=== PATIENT | male | born 1990 | race Hispanic/Latino ===

== ENCOUNTER 2019-02-21 19:36 | Emergency (ER) | payer OTHER ==
[2019-02-21] MEDS ORDERED: KETOROLAC TROMETHAMINE INJ 30 MG/ML VIAL IM ONE (19:47)
[2019-02-21] MEDS ORDERED: HYDROcodone 7.5MG/APAP 325MG 1 EA TAB PO ONE (19:47)
[2019-02-21] MEDS ORDERED: ONDANSETRON ODT 8 MG TAB SL ONE (19:47)
[2019-02-21] MEDS ORDERED: SODIUM CHLORIDE 0.9% 1000ML 1,000 ML IVS ONE (19:48)
[2019-02-21] MEDS ORDERED: diazePAM INJ 10 MG/2 ML SYG IV ONE (21:23)
[2019-02-21 23:05] VITALS: O2SAT 98
--- NOTE | 2019-02-21 23:27 | ED.PDOC ---
History of Present Illness - General Chief Complaint: Headache Stated Complaint: migraine headache Time Seen by Provider: 02/21/19 19:37 Source: patient Exam Limitations: no limitations - History of Present Illness Initial Comments: the patient is a 28-year-old male presenting to the emergency room secondary primarily due to headache. The patient also appears to have a low-grade fever. Headache is worse in the frontal area. No altered mental status. He has had some nausea. No nuchal rigidity or meningeal signs. Mild photophobia. No trauma. no sore throat. The patient apparently had what sounds like a viral syndrome for the last 4 or 5 days. He did have some stomach upset as well as some cough and some runny nose during that time but had been getting better unti l the headache that started around 3 PM today. His liquid intake has been down over the past few days. Timing/Duration: 4-6 hours Severity: severe Improving Factors: nothing Worsening Factors: nothing Associated Symptoms: headaches, loss of appetite, malaise Allergies/Adverse Reactions: Allergies NO KNOWN ALLERGY Allergy (Unverified 09/12/12 10:36) Home Medications: Ambulatory Orders Acetaminophen W/ Codeine [Tylenol w/Codeine 300-30 mg] 1 tab PO Q4HR PRN #30 tab 12/03/15 Review of Systems - Review of Systems Constitutional: States: malaise EENTM: States: nose congestion Respiratory: States: no symptoms reported Cardiology: States: no symptoms reported Gastrointestinal/Abdominal: States: nausea Genitourinary: States: no symptoms reported Musculoskeletal: States: no symptoms reported Skin: States: no symptoms reported Neurological: States: headache Endocrine: States: no symptoms reported Hematologic/Lymphatic: States: no symptoms reported All other Systems: No Change from Baseline Past Medical History (General) - Patient Medical History Hx Seizures: No Hx Stroke: No Hx Dementia: No Hx Asthma: No Hx of COPD: No Hx Cardiac Disorders: No Hx Congestive Heart Failure: No Hx Pacemaker: No Hx Hypertension: No Hx Thyroid Disease: No Hx Diabetes: No Hx Gastroesophageal Reflux: No Hx Renal Disease: No Hx Cancer: No Hx of HIV: No Hx Hepatitis C: No Hx MRSA: No Surgical History: no surgical history - Vaccination History Hx Tetanus, Diphtheria Vaccination: No Hx Influenza Vaccination: No Hx Pneumococcal Vaccination: No Immunizations Up to Date: No - Social History Hx Tobacco Use: Yes Hx Alcohol Use: Yes Hx Substance Use: No Hx Substance Use Treatment: No Hx Depression: No Hx Physical Abuse: No Hx Emotional Abuse: No Hx Suspected Abuse: No Family Medical History - Family History Mother Family History: Unknown Living Status: Unknown Physical Exam - Physical Exam General Appearance: Alert, Obvious distress Eye Exam: bilateral normal Ears, Nose, Throat: hearing grossly normal, normal pharynx, nasal congestion Neck: non-tender, full range of motion, supple Respiratory: lungs clear, normal breath sounds, no respiratory distress, no accessory muscle use Cardiovascular/Chest: normal peripheral pulses, regular rate, rhythm, no edema Peripheral Pulses: radial,right: 2+, radial,left: 2+, dorsalis pedis,right: 2+, dorsalis pedis,left: 2+ Gastrointestinal/Abdominal: non tender, soft Rectal Exam: deferred Back Exam: no CVA tenderness, no vertebral tenderness Extremity: normal range of motion, non-tender, normal inspection, no pedal edema, normal capillary refill 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, no motor/sensory deficits, alert, normal mood/affect, oriented x 3 Skin Exam: normal color Comments: Vital Signs - 24 hr 02/21/19 02/21/19 02/21/19 20:00 21:00 21:44 Temperature 100.1 F H 99.2 F Pulse Rate [ 68 67 66 left] Respiratory 20 14 14 Rate Blood Pressure 140/81 105/56 96/42 [Left Arm] O2 Sat by Pulse 100 99 99 Oximetry 02/21/19 02/21/19 22:00 23:00 Temperature Pulse Rate [ 66 63 left] Respiratory 12 12 Rate Blood Pressure 110/56 108/54 [Left Arm] O2 Sat by Pulse 99 98 Oximetry Progress - Progress Progress: 02/21/19 23:29 the patient is a 28-year-old male presenting to the emergency room secondary to a headache that started earlier in the afternoon and has progressively gotten worse. This likely started as a mild tension or dehydration headache related to his recent viral syndrome. Based on his symptoms here this evening, this seems more like it has turned into a migraine headache at this point. No altered mental status and no nuchal rigidity or meningeal signs to really point to an encephalitis or meningitis at this time. no focal neurological changes and no vital sign instability. The patient is doing significantly better symptomatically. He has received a liter of IV fluids. He will be allowed to go home. However if the patient worsens significantly in any way then he is to return here for additional workup including additional imaging, blood work and possibly a lumbar puncture could be done if indicated at the time. He does still appear to be suffering mildly from his viral syndrome that he acquired earlier in the week. He needs to keep himself well-hydrated. Follow-up with primary care doctor next week. [facility] [id number] - Results/Orders Results/Orders: Laboratory Results - last 24 hr 02/21/19 21:35 POC Glucose 135 H Departure - Departure Clinical Impression: Viral syndrome Migraine Qualifiers: Migraine type: without aura Status migrainosus presence: without status migrainosus Intractability: not intractable Qualified Code(s): G43.009 - Migraine without aura, not intractable, without status migrainosus Disposition: Discharge to Home or Self Care Condition: Fair Departure Forms: ED Discharge - Pt. Copy, Patient Portal Self Enrollment Diet: regular diet Activity: increase activity as tolerated Home Medications: Ambulatory Orders Acetaminophen W/ Codeine [Tylenol w/Codeine 300-30 mg] 1 tab PO Q4HR PRN #30 tab 12/03/15 Additional Instructions: the patient is a 28-year-old male presenting to the emergency room secondary to a headache that started earlier in the afternoon and has progressively gotten worse. This likely started as a mild tension or dehydration headache related to his recent viral syndrome. Based on his symptoms here this evening, this seems more like it has turned into a migraine headache at this point. No altered mental status and no nuchal rigidity or meningeal signs to really point to an encephalitis or meningitis at this time. no focal neurological changes and no vital sign instability. The patient is doing significantly better symptomatically. He has received a liter of IV fluids. He will be allowed to go home. However if the patient worsens significantly in any way then he is to return here for additional workup including additional imaging, blood work and possibly a lumbar puncture could be done if indicated at the time. He does still appear to be suffering mildly from his viral syndrome that he acquired earlier in the week. He needs to keep himself well-hydrated. Follow-up with primary care doctor next week.
[2019-02-21] MEDS ORDERED: predniSONE 20 MG TAB PO ONE (23:34)
[2019-02-21 23:44] VITALS: BP 107/51; TEMP 97.4
== END 2019-02-21 23:42 | disposition home or self-care (01) ==
LOC: ER 19:36
DX: G43.009 Migraine without aura, not intractable, without status migrainosus (principal); B34.9 Viral infection, unspecified; Z87.891 Personal history of nicotine dependence
CPT/HCPCS: 36415; 82948; 87804; J1885; J3360; J7030; J7512

== ENCOUNTER 2019-02-22 16:38 | Emergency (ER) | payer SELFPAY ==
[2019-02-22] MEDS ORDERED: SODIUM CHLORIDE 0.9% 1000ML 1,000 ML IVS ONE (17:12)
[2019-02-22] MEDS ORDERED: ACETAMINOPHEN 325 MG TAB PO ONE (17:12)
[2019-02-22] MEDS ORDERED: METOCLOPRAMIDE HCL INJ 10 MG/2 ML VIAL IV ONE (17:13)
[2019-02-22] MEDS ORDERED: diphenhydrAMINE HCL 50 MG/ML VIAL IV STA (17:13)
--- NOTE | 2019-02-22 17:16 | ED.PDOC ---
History of Present Illness - General Chief Complaint: Headache Stated Complaint: headache Time Seen by Provider: 02/22/19 16:42 - History of Present Illness Initial Comments: Patient presents to the ED complaining of headache. States that he had a viral syndrome four days ago which was significant for fever, body aches and chills. Two days later he developed headache that gradually worsened. He has noted low- grade fevers at home but not checked with a thermometer. He was seen in the ED yesterday for same complaint, advised to return if symptoms did not improve. He complains of bitemporal and frontal headache that is worse when bending forward and looking around. He has mild photophobia, no phonophobia. He denies neck pain and stiffness. He denies recent travel and known sick contacts. He has been fully immunized. He drinks occasional caffeine. No drugs. No other complaints at this time. Allergies/Adverse Reactions: Allergies NO KNOWN ALLERGY Allergy (Unverified 09/12/12 10:36) Home Medications: Ambulatory Orders Acetaminophen W/ Codeine [Tylenol w/Codeine 300-30 mg] 1 tab PO Q4HR PRN #30 tab 12/03/15 Review of Systems - Review of Systems Constitutional: States: chills, fever, malaise EENTM: States: eye pain. Denies: blurred vision, throat pain, throat swelling Respiratory: Denies: cough, short of breath Cardiology: Denies: chest pain, palpitations Gastrointestinal/Abdominal: Denies: abdominal pain Genitourinary: States: no symptoms reported Musculoskeletal: States: muscle pain, muscle stiffness. Denies: neck pain Skin: Denies: lesions, rash Neurological: States: headache. Denies: numbness, paresthesia Endocrine: States: no symptoms reported Hematologic/Lymphatic: States: no symptoms reported All other Systems: Reviewed and Negative Past Medical History (General) - Patient Medical History Hx Seizures: No Hx Stroke: No Hx Dementia: No Hx Asthma: No Hx of COPD: No Hx Cardiac Disorders: No Hx Congestive Heart Failure: No Hx Pacemaker: No Hx Hypertension: No Hx Thyroid Disease: No Hx Diabetes: No Hx Gastroesophageal Reflux: No Hx Renal Disease: No Hx Cancer: No Hx of HIV: No Hx Hepatitis C: No Hx MRSA: No - Vaccination History Hx Tetanus, Diphtheria Vaccination: No Hx Influenza Vaccination: No Hx Pneumococcal Vaccination: No - Social History Hx Tobacco Use: Yes Hx Alcohol Use: Yes Hx Substance Use: No Hx Substance Use Treatment: No Hx Depression: No Hx Physical Abuse: No Hx Emotional Abuse: No Hx Suspected Abuse: No Family Medical History - Family History Mother Family History: Unknown Living Status: Unknown Physical Exam - Physical Exam General Appearance: Alert, Restless, Well Groomed Eyes, Ears, Nose, Throat Exam: PERRL/EOMI, normal ENT inspection, pharynx normal, other - no photophobia Neck: non-tender, full range of motion, other - no meningeal signs Cardiovascular/Chest: regular rate, rhythm Respiratory: no respiratory distress, no accessory muscle use Gastrointestinal/Abdominal: non tender, soft Extremity: normal range of motion 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 02/22/19 22:06 Patient reassessed, headache is well controlled and he wants to go home. CSF studies consistent with aseptic meningitis, no organisms on WBC. Neuro exam is normal. Will continue outpatient symptomatic management and he will follow up with his PCP. Home care instructions and return indications reviewed. MDM: Patient presents to the ED with headache, likely aseptic meningitis. He does not have focal neurologic deficits. He has only 10WBCs on his lumbar puncture with mostly lymphocytes. There is no leukocytosis and CSF protein/glucose are normal. His headache improved with ED management. Discussed and offered admission, however, the patient stated that he was comfortable continuing outpatient symptomatic management. Home care instructions and return indications reviewed. Bj Iqbal MD Emergency Medicine Physician Number [id number] - Results/Orders Results/Orders: 02/22/19 19:04 CSF CULTURE Stat Laboratory Results - last 24 hr 02/22/19 02/22/19 02/22/19 17:23 17:23 19:02 WBC 6.1 RBC 4.68 L Hgb 13.1 L Hct 39.1 L MCV 83.5 MCH 28.0 MCHC 33.5 RDW 14.1 Plt Count 173 MPV 8.5 Absolute Neuts (auto) 3.50 Absolute Lymphs (auto) 2.00 Absolute Monos (auto) 0.60 Absolute Eos (auto) 0.00 Absolute Basos (auto) 0.00 Neutrophils % 56.6 Lymphocytes % 32.4 Monocytes % 10.6 H Eosinophils % 0.1 L Basophils % 0.3 Sodium 137 Potassium 3.6 Chloride 99 L Carbon Dioxide 26 Anion Gap 15.6 BUN 15 Creatinine 1.03 BUN/Creatinine Ratio 14.6 Random Glucose 96 Serum Osmolality 274.5 L Calcium 8.7 C-Reactive Protein 0.9 CSF Appearance CSF Color CSF WBC CSF RBC CSF Neutrophils CSF Lymphocytes CSF Glucose 65 CSF Total Protein 36.9 02/22/19 19:08 WBC RBC Hgb Hct MCV MCH MCHC RDW Plt Count MPV Absolute Neuts (auto) Absolute Lymphs (auto) Absolute Monos (auto) Absolute Eos (auto) Absolute Basos (auto) Neutrophils % Lymphocytes % Monocytes % Eosinophils % Basophils % Sodium Potassium Chloride Carbon Dioxide Anion Gap BUN Creatinine BUN/Creatinine Ratio Random Glucose Serum Osmolality Calcium C-Reactive Protein CSF Appearance Clear CSF Color Colorless CSF WBC 10 H* CSF RBC 1 CSF Neutrophils 20.0 CSF Lymphocytes 80.0 CSF Glucose CSF Total Protein Departure - Departure Clinical Impression: Aseptic meningitis Time of Disposition: 22:08 Disposition: Discharge to Home or Self Care Condition: Fair Departure Forms: ED Discharge - Pt. Copy, Patient Portal Self Enrollment Instructions: DI for Headache, Aseptic Meningitis (DC) Diet: resume usual diet Activity: increase activity as tolerated Home Medications: Ambulatory Orders Acetaminophen W/ Codeine [Tylenol w/Codeine 300-30 mg] 1 tab PO Q4HR PRN #30 tab 12/03/15
[2019-02-22] MEDS ORDERED: SUMAtriptan SUCCINATE INJ 6 MG/0.5 ML VIAL SUBCU ONE (18:13)
[2019-02-22 22:06] VITALS: BP 107/52; O2SAT 98
[2019-02-22 22:12] VITALS: TEMP 98.9
== END 2019-02-22 22:13 | disposition home or self-care (01) ==
LOC: ER 16:38
DX: G03.0 Nonpyogenic meningitis (principal); Z87.891 Personal history of nicotine dependence
CPT/HCPCS: 36415; 80048; 82945; 84157; 85025; 86140; 87070; 87205; 87502; 89051; J1200; J2765; J3030; J7030

== ENCOUNTER 2019-10-01 19:51 | Emergency (ER) | payer SELFPAY ==
[2019-10-01] MEDS ORDERED: LIDOCAINE 1% 10 ML VIAL INJ ONE (19:59)
[2019-10-01] MEDS ORDERED: CHLORHEXIDINE GLUCONATE 4 % 15 ML UD TOP ONE (20:01)
[2019-10-01 20:09] VITALS: TEMP 97.5; O2SAT 100
[2019-10-01] MEDS ORDERED: TETANUS,DIPHTHERIA,PERTUSSIS 1 EA SYG IM ONE (20:20)
[2019-10-01] MEDS ORDERED: ACETAMINOPHEN W/COD #3 TAB 1 EA TAB PO ONE (20:21)
[2019-10-01] MEDS ORDERED: AMOXICILLIN & POT CLAVULANATE 875 MG TAB PO ONE (20:21)
--- NOTE | 2019-10-01 20:24 | ED.PDOC ---
History of Present Illness - General Chief Complaint: Laceration Stated Complaint: laceration right thumb Time Seen by Provider: 10/01/19 20:20 Additional Information: Is a 25-year male patient presents to the ER after laceration to the right th umb, with an electric saw, patient is not up-to-date in his tetanus Patient is able to make a fist Laceration is located at the volar aspect of the base of the thumb - History of Present Illness Occurred: just prior to arrival Pain Location: upper extremity Method of Injury: other - cut with electric equipment Associated Symptoms (Fall): denies symptoms Allergies/Adverse Reactions: Allergies NO KNOWN ALLERGY Allergy (Verified 10/01/19 20:11) Home Medications: Ambulatory Orders Amoxicillin & Pot Clavulanate [Augmentin Tab] 875 mg PO BID #10 tab 10/01/19 Review of Systems - Review of Systems Constitutional: States: no symptoms reported EENTM: States: no symptoms reported Respiratory: States: no symptoms reported Cardiology: States: no symptoms reported Gastrointestinal/Abdominal: States: no symptoms reported Genitourinary: States: no symptoms reported Musculoskeletal: States: no symptoms reported Skin: States: no symptoms reported Neurological: States: no symptoms reported Endocrine: States: no symptoms reported Hematologic/Lymphatic: States: no symptoms reported Past Medical History (General) - Patient Medical History Hx Seizures: No Hx Stroke: No Hx Dementia: No Hx Asthma: No Hx of COPD: No Hx Cardiac Disorders: No Hx Congestive Heart Failure: No Hx Pacemaker: No Hx Hypertension: No Hx Thyroid Disease: No Hx Diabetes: No Hx Gastroesophageal Reflux: No Hx Renal Disease: No Hx Cancer: No Hx of HIV: No Hx Hepatitis C: No Hx MRSA: No Surgical History: no surgical history - Vaccination History Hx Tetanus, Diphtheria Vaccination: Yes Hx Influenza Vaccination: No Hx Pneumococcal Vaccination: No - Social History Hx Tobacco Use: No Hx Chewing Tobacco Use: No Hx Alcohol Use: No Hx Substance Use: No Hx Substance Use Treatment: No Hx Depression: No Feels Threatened In Home Enviroment: No Feels Threatened In a Relationship: No Hx Physical Abuse: No Hx Emotional Abuse: No Hx Suspected Abuse: No - Female History Patient is a Female of Child Bearing Age (10 -59 yrs old): No Family Medical History - Family History Mother Family History: Unknown Living Status: Unknown Physical Exam - Physical Exam General Appearance: Alert, Well Developed, Well Groomed, Well Hydrated Head Injury: no evidence of injury Eye Exam: bilateral normal ENT Exam: hearing grossly normal Neck Exam: non-tender, full range of motion, normal alignment, normal inspection Cardiovascular/Respiratory: regular rate, rhythm, no M/R/G, normal peripheral pulses, no JVD, normal breath sounds, no respiratory distress Gastrointestinal/Abdominal: normal bowel sounds, non tender, soft, no organomegaly, no pulsatile mass Back Exam: normal inspection, no CVA tenderness, no vertebral tenderness Extremity Exam: no evidence of injury, normal range of motion, non-tender, other - There is a 3 cm laceration noted in patient base of the thumb on the right hand, no active bleeding on inspection I did not see any tear on the tendon, patient is able to flex and extend the thumb and opposition 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, no motor/sensory deficits, alert, normal mood/affect, oriented x 3 - [place] Coma Score Best Eye Response ([place]): (4) open spontaneously Best Verbal Response ([place]): (5) oriented Best Motor Response ([place]): (6) obeys commands [place] Total: 15 Progress - Progress Progress: 10/01/19 20:27 Laceration was repaired without any complications, I do not see any involvement of the tendons, but there is no way to know any patient has a partial tear of the tendon, wound will be dressed with Steri-Strips and a metal splint, and will be discharged home with Augmentin and patient is to follow-up with a hand specialist for evaluation of possible or potential tendon laceration Procedures - Laceration/Wound Repair Right Volar Finger Wound's Depth, Shape: superficial, linear Wound Explored: clean Betadine Prep?: Yes Anesthesia: 1% Lidocaine Volume Anesthetic (cc's): 3 Wound Debrided: minimal Wound Repaired With: sutures Suture Size/Type: 4:0 Number of Sutures: 4 Layer Closure?: No Sterile Dressing Applied?: No Splint Applied?: No Sling Applied?: No Departure - Departure Clinical Impression: Laceration Disposition: Discharge to Home or Self Care Departure Forms: ED Discharge - Pt. Copy, Patient Portal Self Enrollment Instructions: DI for Laceration Repair, How to Care for a Laceration After Repair, DI for Laceration Repair -- Simple Diet: resume usual diet Prescriptions: Amoxicillin & Pot Clavulanate [Augmentin Tab] 875 mg PO BID #10 tab Home Medications: Ambulatory Orders Amoxicillin & Pot Clavulanate [Augmentin Tab] 875 mg PO BID #10 tab 10/01/19 Additional Instructions: Follow-up with hand surgeon
[2019-10-01 20:39] VITALS: BP 125/67
== END 2019-10-01 20:39 | disposition home or self-care (01) ==
LOC: ER 19:51
DX: S61.011A Laceration without foreign body of right thumb without damage to nail, initial encounter (principal); W31.2XXA Contact with powered woodworking and forming machines, initial encounter; Y92.9 Unspecified place or not applicable